=== PATIENT | male | born 1970 | race African-American/Black ===

== ENCOUNTER 2017-05-19 02:13 | Emergency (ER) | payer OTHER ==
[~2017-05-19] VITALS: Ht 177.8 cm; Wt 127.0 kg
[~2017-05-19 02:13] MED LIST: ARIP5TAB7 PO; BUPR150T18 PO; CLOT15CR55 TOP; DIPH1TAB25 PO; FER325 PO; FOLI-49 PO; LISI10TA2 PO; MESA800T2 PO; MONT10TA24 PO; PANT40TA3 PO; POTA10TA18 PO; PRED1TAB2 PO; QUET100T32 PO; SULF500T5 PO
[2017-05-19 02:17] VITALS: Ht 177.8 cm; Wt 127.0 kg
[2017-05-19 04:12] LABS: ADD UMIC NO; UR ASCORBIC ACID NEGATIVE (NEGATIVE); UR BILIRUBIN (Dip) NEGATIVE (NEGATIVE); UR BLOOD (Dip) NEGATIVE (NEGATIVE); UR CLARITY CLEAR (CLEAR); UR COLOR YELLOW (YELLOW); UR GLUCOSE (Dip) NEGATIVE (NEGATIVE); UR KETONES (Dip) NEGATIVE (NEGATIVE); UR LEUKOCYTE ESTERASE (Dip) NEGATIVE Leu/ul (NEGATIVE); UR NITRITE (Dip) NEGATIVE (NEGATIVE); UR SPECIFIC GRAVITY (Dip) 1.012 (1.003-1.030); UR TOTAL PROTEIN (Dip) NEGATIVE (NEGATIVE); UR UROBILINOGEN (Dip) NEGATIVE (NEGATIVE)
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
[2017-05-19 04:25] LABS: COCAINE Positive (NEGATIVE); OPIATES Positive (NEGATIVE)
[2017-05-19 04:29] LABS: BARBITURATES Negative (NEGATIVE); BENZODIAZEPINES Negative (NEGATIVE); CANNABINOIDS Positive (NEGATIVE)
[2017-05-19 05:53] LABS: BASOPHILS % 0.3 % (0.0-2.0); EOSINOPHILS # 0.1 10^3/ul (0.0-0.5); EOSINOPHILS % 0.5 % (0.0-7.0); HEMATOCRIT 34.3 % (42.0-52.0); HEMOGLOBIN 11.8 g/dl (14.0-18.0); LYMPHOCYTES # 1.7 10^3/ul (0.8-2.9); MEAN CORPUSCULAR HGB CONC 34.4 g/dl (32.0-37.0); MEAN CORPUSCULAR VOLUME 98.8 fl (82.0-101.0); MEAN PLATELET VOLUME 10.1 fl (7.4-10.4); MONOCYTE # 0.6 10^3/ul (0.3-0.9); MONOCYTES % 5.6 % (0.0-11.0); NEUTROPHIL # 8.7 10^3/ul (1.6-7.5); NEUTROPHILS % 77.9 % (39.0-77.0); PLATELET COUNT 236 10^3/UL (140-415); RED BLOOD COUNT 3.47 10^6/ul (4.70-6.10); RED CELL DISTRIBUTION WIDTH 12.9 % (11.5-14.5); WHITE BLOOD COUNT 11.2 10^3/ul (4.8-10.8)
[2017-05-19 06:26] LABS: ALANINE AMINOTRANSFERASE 42 IU/L (13-69); ALBUMIN 3.4 g/dl (3.3-4.9); ALKALINE PHOSPHATASE 67 IU/L (42-121); ANION GAP 9 (8-16); ASPARTATE AMINO TRANSFERASE 24 IU/L (15-46); BILIRUBIN,INDIRECT 0.1 mg/dl (0-1.1); BILIRUBIN,TOTAL 0.1 mg/dl (0.2-1.3); BLOOD UREA NITROGEN 15 mg/dl (7-20); CALCIUM 8.8 mg/dl (8.4-10.2); CARBON DIOXIDE 31 mmol/L (21-31); CHLORIDE 107 mmol/L (97-110); CREATININE 1.11 mg/dl (0.61-1.24); GLUCOSE 124 mg/dl (70-220); POTASSIUM 4.3 mmol/L (3.5-5.1); SODIUM 143 mmol/L (135-144); TOTAL PROTEIN 6.8 g/dl (6.1-8.1)
[2017-05-19 06:37] LABS: ACETAMINOPHEN < 10.0 ug/ml (10.0-30.0); ETHANOL < 10.0 mg/dl; SALICYLATE < 1.0 mg/dl (5.0-30.0)
[2017-05-19 08:39] VITALS: BP 130/69; PULSE 75; RESP 15; TEMP 97
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
== END 2017-05-19 09:35 ==
LOC: E/R 02:13
DX: R44.0 Auditory hallucinations (principal); R45.851 Suicidal ideations; I10 Essential (primary) hypertension
CPT/HCPCS: 80053; 80306; 80307; 81003; 85025; 99285